=== PATIENT | female | born 1980 | race American Indian/Alaskan Native ===

== ENCOUNTER 2019-03-05 20:46 | Emergency (ER) | payer BC, OTHER ==
[2019-03-05 21:10] VITALS: BP 112/65
--- NOTE | 2019-03-05 21:29 | Event Note ---
ED Screening Note ED Screening Note: This initial assessment/diagnostic orders/clinical plan/treatment(s) is/are subject to change based on patients health status, clinical progression and re- assessment by fellow clinical providers in the ED. Further treatment and workup at subsequent clinical providers discretion. Patient/guardian urged not to elope from the ED as their condition may be serious if not clinically assessed and managed. Initial orders include: 39 yo BF states that she has R lower abdominal pain that radiates to her back x 2 days. She states that she has taken Motrin 800mg with no relief.
[2019-03-05 22:15] LABS: Bilirubin,Urine NEG (Negative); Blood,Urine NEG (Negative); Color,Urine Yellow (Yellow); Mucus,Urine 3+ /HPF; Protein,Urine <15 mg/dL mg/dL (Negative); Urobilinogen,Urine < 2.0 mg/dL (<2.0)
[2019-03-05 22:20] LABS: HCG Qualitative,Urine Negative (Negative)
[2019-03-05 22:43] LABS: Basophils % (Auto) 0.6 % (0.0-1.8); Eosinophils # (Auto) 0.1 K/mm3 (0.0-0.4); Hematocrit 35.2 % (30.3-42.9); Hemoglobin 11.5 gm/dl (10.1-14.3); Lymphocytes # (Auto) 2.2 K/mm3 (1.2-5.4); Lymphocytes % (Auto) 46.4 % (13.4-35.0); Mean Corpuscular HGB Conc 33 % (30-34); Mean Corpuscular Volume 91 fl (79-97); Monocytes # (Auto) 0.4 K/mm3 (0.0-0.8); Monocytes % (Auto) 8.6 % (0.0-7.3); Platelet Count 231 K/mm3 (140-440); Red Blood Count 3.89 M/mm3 (3.65-5.03); Red Cell Distribution Width 14.5 % (13.2-15.2)
[2019-03-05] MEDS ORDERED: MORPHINE 4 MG/1 ML INJ IV ONE (23:14)
[2019-03-05] MEDS ORDERED: ONDANSETRON 4 MG/2 ML INJ IV ONE (23:14)
[2019-03-05] MEDS ORDERED: SODIUM CHLORIDE 0.9% 1000 ML 1,000 ML IV ONE (23:15)
[2019-03-05 23:47] LABS: Alanine Aminotransferase 14 units/L (7-56); Albumin 3.7 g/dL (3.9-5); BUN/Creatinine Ratio 13; Blood Urea Nitrogen 8 mg/dL (7-17); Calcium 8.5 mg/dL (8.4-10.2); Hemolysis Index 0
[2019-03-06] MEDS ORDERED: cefTRIAXone/NS 1 GM/50 ML 1 GM/50 ML BAG IV ONE (00:21)
--- NOTE | 2019-03-06 01:09 | Cat Scan Report ---
CT ABDOMEN AND PELVIS WITH CONTRAST INDICATION / CLINICAL INFORMATION: R lower abdominal pain. TECHNIQUE: Axial CT images were obtained through the abdomen and pelvis after 100 mL Omnipaque [address] scans at this location are performed using CT dose reduction for ALARA by means of automated exposure control. COMPARISON: None available. FINDINGS: LOWER CHEST: No significant abnormality. LIVER: Probable small flash fill cavernous hemangioma in the dome of the right lobe. No significant a bnormality. GALLBLADDER: No significant abnormality. BILE DUCTS: No significant abnormality. PANCREAS: No significant abnormality. SPLEEN: No significant abnormality. ADRENALS: No significant abnormality. RIGHT KIDNEY and URETER: No significant abnormality. LEFT KIDNEY and URETER: No significant abnormality. STOMACH and SMALL BOWEL: No significant abnormality. COLON: No significant abnormality. APPENDIX: No significant abnormality. PERITONEUM: Trace free fluid in the pelvis. No free air. No fluid collection. LYMPH NODES: No significant adenopathy. AORTA and ARTERIES: No significant abnormality. IVC and VEINS: No significant abnormality. URINARY BLADDER: No significant abnormality. REPRODUCTIVE ORGANS: Uterus shows no acute abnormality. Left adnexal cysts measuring up to 3.1 cm in size. ADDITIONAL FINDINGS: None. SKELETAL SYSTEM: No significant abnormality. IMPRESSION: 1. No inflammatory process or bowel obstruction. 2. Left adnexal cysts measuring up to 3.1 cm with trace free fluid in the pelvis. Signer Name: Shyla Rodriguez MD Signed: 03/06/2019 1:05 AM Workstation Name: [id number]
--- NOTE | 2019-03-06 01:35 | Emergency Department Report ---
ED Abdominal Pain HPI - General Chief Complaint: Urogenital-Female Stated Complaint: LOWER RIGHT SIDE & LOWER RIGHT BACK PAIN Source: patient Mode of arrival: Ambulatory Limitations: No Limitations - History of Present Illness Initial Comments: Patient is a 39-year-old -[place] female with no past medical history presents to the ED with complaint of acute onset persistent right lower quadrant pain with nausea and vomiting for the last 2 days. Patient states that the pain in the right lower quadrant radiates to the right flank and right low back with urinary frequency. Patient denies fever, chills, diarrhea, dizziness, chest pain, shortness of breath, dysuria, vaginal bleeding, vaginal discharge, follow traumatic injury. MD Complaint: abdominal pain -: Sudden, days(s) (2) Location: RLQ, R flank Radiation: RLQ, R flank Migration to: no migration Severity scale (0 -10): 7 Quality: aching, sharp Consistency: constant Improves With: nothing Worsens With: movement Associated Symptoms: denies other symptoms, nausea, vomiting. denies: diarrhea, fever, chills, constipation, dysuria, melena, hematuria, anorexia, syncope - Related Data LMP Date: 03/03/19 Previous Rx's Medication Instructions Recorded Last Taken Type Fluconazole [Diflucan TAB] 150 mg PO ONCE #1 tablet 03/06/19 Unknown Rx Ketorolac [Toradol] 10 mg PO Q8H PRN #20 tablet 03/06/19 Unknown Rx Ondansetron [Zofran Odt] 4 mg PO Q6HR PRN #15 tab.rapdis 03/06/19 Unknown Rx cephALEXin [Keflex] 500 mg PO Q8HR #30 cap 03/06/19 Unknown Rx Allergies Allergy/AdvReac Type Severity Reaction Status Date / Time No Known Allergies Allergy Unverified 03/05/19 21:06 ED Review of Systems ROS: Stated complaint: LOWER RIGHT SIDE & LOWER RIGHT BACK PAIN Other details as noted in HPI Constitutional: denies: chills, fever Eyes: denies: eye pain, eye discharge, vision change ENT: denies: ear pain, throat pain Respiratory: denies: cough, shortness of breath, wheezing Cardiovascular: denies: chest pain, palpitations Endocrine: no symptoms reported Gastrointestinal: abdominal pain, nausea. denies: diarrhea Genitourinary: denies: urgency, dysuria, discharge Musculoskeletal: denies: back pain, joint swelling, arthralgia Skin: denies: rash, lesions Neurological: denies: headache, weakness, paresthesias Psychiatric: denies: anxiety, depression Hematological/Lymphatic: denies: easy bleeding, easy bruising ED Past Medical Hx - Past Medical History Previous Medical History?: No - Surgical History Past Surgical History?: No - Social History Smoking Status: Never Smoker Substance Use Type: Alcohol - Medications Home Medications: Home Medications Medication Instructions Recorded Confirmed Last Taken Type Fluconazole [Diflucan TAB] 150 mg PO ONCE #1 tablet 03/06/19 Unknown Rx Ketorolac [Toradol] 10 mg PO Q8H PRN #20 tablet 03/06/19 Unknown Rx Ondansetron [Zofran Odt] 4 mg PO Q6HR PRN #15 tab.rapdis 03/06/19 Unknown Rx cephALEXin [Keflex] 500 mg PO Q8HR #30 cap 03/06/19 Unknown Rx ED Physical Exam - General Limitations: No Limitations General appearance: alert, in no apparent distress - Head Head exam: Present: atraumatic, normocephalic, normal inspection - Eye Eye exam: Present: normal appearance, PERRL, EOMI Pupils: Present: normal accommodation - ENT ENT exam: Present: normal exam, normal orophraynx, mucous membranes moist, TM's normal bilaterally, normal external ear exam - Neck Neck exam: Present: normal inspection, full ROM - Respiratory Respiratory exam: Present: normal lung sounds bilaterally. Absent: respiratory distress, wheezes, rales, stridor, chest wall tenderness, decreased breath sounds, prolonged expiratory - Cardiovascular Cardiovascular Exam: Present: regular rate, normal rhythm, normal heart sounds. Absent: systolic murmur, diastolic murmur, rubs, gallop - GI/Abdominal GI/Abdominal exam: Present: soft, tenderness (moderately tender right lower quadrant area, no guarding or rebound), normal bowel sounds. Absent: guarding, rebound, hyperactive bowel sounds, hypoactive bowel sounds, mass - Extremities Exam Extremities exam: Present: normal inspection, full ROM, normal capillary refill - Back Exam Back exam: Present: normal inspection, full ROM. Absent: tenderness, CVA tenderness (R), muscle spasm, paraspinal tenderness, vertebral tenderness - Neurological Exam Neurological exam: Present: alert, oriented X3, CN II-XII intact, normal gait, reflexes normal - Psychiatric Psychiatric exam: Present: normal affect, normal mood - Skin Skin exam: Present: warm, dry, intact, normal color. Absent: rash ED Course Vital Signs 03/05/19 21:06 Temperature 98.3 F Pulse Rate 75 Respiratory 18 Rate Blood Pressure 112/65 O2 Sat by Pulse 100 Oximetry - Reevaluation(s) Reevaluation #1: 03/06/19 01:43 This is a 39-year-old -[place] female who presented to the ED with right lower quadrant pain with nausea for the last 2 days. In the ED, patient is alert and oriented 3 and is not in distress. Lab test results were reviewed and are nonactionable except urinalyses that shows significant urinary tract infection. Abdomen pelvis CT scan with contrast shows no acute inflammatory process or pathology of the pelvis and abdomen. Appendix is normal. Patient was treated for pain and for nausea and vomiting. On reevaluation, patient's alert and oriented 3 and is not in distress with pain well controlled. Patient was discharged home on antibiotics and pain medication and advised to follow-up with her primary care physician in 5-7 days for reevaluation or return to the ED immediately if symptoms get worse. 03/06/19 01:44 ED Medical Decision Making - Lab Data Result diagrams: 03/05/19 21:51 03/05/19 23:02 - Radiology Data Radiology results: report reviewed, [place] [id number] Cat Scan Report Signed Patient: MARY FLOWERS MR# : [id number] : 1980 Acct:[id number] Age/Sex: 39 / F ADM Date: 03/05/19 Loc: ED Attending Dr: Ordering Physician: ALLY SALAZAR PA-C Date of Service: 03/05/19 Procedure(s): CT abdomen pelvis w con Accession Number(s): [id number] cc: ALLY SALAZAR PA-C CT ABDOMEN AND PELVIS WITH CONTRAST INDICATION / CLINICAL INFORMATION: R lower abdominal pain. TECHNIQUE: Axial CT images were obtained through the abdomen and pelvis after 100 mL Omnipaque [address] scans at this location are performed using CT dose reduction for ALARA by means of automated exposure control. COMPARISON: None available. FINDINGS: LOWER CHEST: No significant abnormality. LIVER: Probable small flash fill cavernous hemangioma in the dome of the right lobe. No significant abnormality. GALLBLADDER: No significant abnormality. BILE DUCTS: No significant abnormality. PANCREAS: No significant abnormality. SPLEEN: No significant abnormality. ADRENALS: No significant abnormality. RIGHT KIDNEY and URETER: No significant abnormality. LEFT KIDNEY and URETER: No significant abnormality. STOMACH and SMALL BOWEL: No significant abnormality. COLON: No significant abnormality. APPENDIX: No significant abnormality. PERITONEUM: Trace free fluid in the pelvis. No free air. No fluid collection. LYMPH NODES: No significant adenopathy. AORTA and ARTERIES: No significant abnormality. IVC and VEINS: No significant abnormality. URINARY BLADDER: No significant abnormality. REPRODUCTIVE ORGANS: Uterus shows no acute abnormality. Left adnexal cysts measuring up to 3.1 cm in size. ADDITIONAL FINDINGS: None. SKELETAL SYSTEM: No significant abnormality. IMPRESSION: 1. No inflammatory process or bowel obstruction. 2. Left adnexal cysts measuring up to 3.1 cm with trace free fluid in the pelvis. Signer Name: Shyla Rodriguez MD Signed: 03/06/2019 1:05 AM Workstation Name: [id number] Transcribed By: DT Dictated By: Tenzin Rodriguez MD Electronically Authenticated By: Tenzin Rodriguez MD Signed Date/Time: 03/06/19 0105 - Medical Decision Making This is a 39-year-old -[place] female who presented to the ED with right lower quadrant pain with nausea for the last 2 days. In the ED, patient is alert and oriented 3 and is not in distress. Lab test results were reviewed and are nonactionable except urinalyses that shows significant urinary tract infection. Abdomen pelvis CT scan with contrast shows no acute inflammatory process or pathology of the pelvis and abdomen. Appendix is normal. Patient was treated for pain and for nausea and vomiting. On reevaluation, patient's alert and oriented 3 and is not in distress with pain well controlled. Patient was discharged home on antibiotics and pain medication and advised to follow-up with her primary care physician in 5-7 days for reevaluation or return to the ED immediately if symptoms get worse. - Differential Diagnosis Appendicitis; colitis; UTI; Ovarian cyst; Kidney stones Critical care attestation.: If time is entered above; I have spent that time in minutes in the direct care of this critically ill patient, excluding procedure time. ED Disposition Clinical Impression: Acute urinary tract infection Abdominal pain Qualifiers: Abdominal location: right lower quadrant Qualified Code(s): R10.31 - Right lower quadrant pain Disposition: TO HOME OR SELFCARE Is pt being admited?: No Does the pt Need Aspirin: No Condition: Stable Instructions: Abdominal Pain (ED), Urinary Tract Infection in Women (ED) Additional Instructions: Take medication with food, drink plenty of fluids and follow-up with your primary care physician in 5-7 days for reevaluation. Return to the ED immed iately if symptoms get worse. Prescriptions: Fluconazole [Diflucan TAB] 150 mg PO ONCE #1 tablet cephALEXin [Keflex] 500 mg PO Q8HR #30 cap Ketorolac [Toradol] 10 mg PO Q8H PRN #20 tablet PRN Reason: Pain Ondansetron [Zofran Odt] 4 mg PO Q6HR PRN #15 tab.rapdis PRN Reason: Nausea Referrals: PRIMARY CARE, [Primary Care Provider] - 3-5 Days Time of Disposition: 01:33 Print Language: URUGUAYAN
[2019-03-06] MEDS ORDERED: ONDANSETRON 4 MG ODT TAB PO ONE (02:21)
[2019-03-06] MEDS ORDERED: ONDANSETRON 4 MG ODT TAB ONE (02:22)
== END 2019-03-06 02:27 | disposition home or self-care (01) ==
LOC: ED 20:46
DX: N39.0 Urinary tract infection, site not specified (principal)
CPT/HCPCS: 36415; 74177; 80053; 81001; 81025; 82140; 83690; 85025; 87086; J0696; J2270; J2405; J7030; Q9967; 87076; 87186; 96361; 96365; 96375; Q0162

== ENCOUNTER 2019-08-31 20:02 | Emergency (ER) | payer BC ==
[2019-08-31 21:48] VITALS: BP 147/79
--- NOTE | 2019-08-31 22:33 | Emergency Department Report ---
Chief Complaint: Sore Throat Stated Complaint: FEEL THROAT CLOSING/SOB Time Seen by Provider: 08/31/19 22:16 - HPI History of Present Illness: 39yo pt states that she has chest irritation, dry cough, sore and itchy throat along with nausea x 3 days. - ROS Review of Systems: All systems reviewed and negative. - Exam Vital Signs: Reviewed Vital Signs 08/31/19 08/31/19 21:45 21:48 Temperature 98.8 F Pulse Rate 70 Respiratory 18 Rate Blood Pressure 147/79 O2 Sat by Pulse 99 Oximetry Physical Exam: General- WNL HEENNT-WNL Heart-WNL Lungs-WNL Abdomen-WNL MS-WNL Skin-WNL Neuro-WNL Psych-WNL MSE screening note: Focused history and physical exam performed. Due to findings the following was ordered: Pt was explained that she is being MSE screened out. Pt was instructed to continue daily activities, Claritin, Flonase and NICOLE as directed; see PCP. She was informed to see ER if severe symptoms arise or current symptoms become worse. Patient discussed with doctor:: SEJAL ALTAMIRANO ED Medical Decision Making - Medical Decision Making Pt was explained that she is being MSE screened out. Pt was instructed to continue daily activities, Claritin, Flonase and NICOLE as directed; see PCP. She was informed to see ER if severe symptoms arise or current symptoms become worse. ED Disposition for MSE Clinical Impression: Allergic rhinitis, Bronchitis Disposition: Z- MED SCREENING EXAM-LEFT Is pt being admited?: No Does the pt Need Aspirin: No Condition: Stable Instructions: Chronic Bronchitis (ED) Prescriptions: Loratadine [Claritin] 10 mg PO ONCE 30 Days #30 tablet Fluticasone [Flonase] 1 spray NS QDAY 30 Days #1 bottle Albuterol INH(or & Nicu Only) [ProAir HFA Inhaler] 2 puff IH QID PRN #8.5 gram PRN Reason: Shortness Of Breath Time of Disposition: 22:39 Print Language: SERBIAN
== END 2019-08-31 22:45 | disposition left against medical advice (07) ==
LOC: ED 20:02
DX: J40 Bronchitis, not specified as acute or chronic (principal); J30.9 Allergic rhinitis, unspecified
CPT/HCPCS: 99281

== ENCOUNTER 2019-09-02 04:34 | Emergency (ER) | payer BC ==
--- NOTE | 2019-09-02 05:34 | XRay Report ---
CHEST 1 VIEW INDICATION / CLINICAL INFORMATION: vance. COMPARISON: None available. FINDINGS: SUPPORT DEVICES: None. HEART / MEDIASTINUM: No significant abnormality. LUNGS / PLEURA: No significant pulmonary or pleural abnormality. No pneumothorax. ADDITIONAL FINDINGS: No significant additional findings. IMPRESSION: No acute pulmonary or pleural abnormality Signer Name: Luis Bean MD FACR Signed: 09/02/2019 5:29 AM Workstation Name: [email or web address]
[2019-09-02 05:35] LABS: Hematocrit 35.4 % (30.3-42.9); Hemoglobin 11.5 gm/dl (10.1-14.3); Mean Corpuscular HGB Conc 33 % (30-34); Mean Corpuscular Volume 89 fl (79-97); Platelet Count 226 K/mm3 (140-440); Red Blood Count 3.95 M/mm3 (3.65-5.03); Red Cell Distribution Width 14.2 % (13.2-15.2)
[2019-09-02 05:48] LABS: BUN/Creatinine Ratio 10; Blood Urea Nitrogen 8 mg/dL (7-17); Calcium 8.6 mg/dL (8.4-10.2); Hemolysis Index 8
--- NOTE | 2019-09-02 06:13 | Emergency Department Report ---
ED Shortness of Breath HPI - General Chief Complaint: Dyspnea/Respdistress Stated Complaint: MARK Time Seen by Provider: 09/02/19 06:08 Source: patient, EMS Mode of arrival: Stretcher Limitations: No Limitations - History of Present Illness Initial Comments: This is a 39-year-old female without significant past medical history who presents with cough sore throat shortness of breath body fatigue for the past several days. She has generalized malaise. She was told on recent ED visit that she was diagnosed with asthma. No previous history of asthma. She has been using inhaler prescribed to her. She has continued to work in the middle of our coronavirus DORENE 19 pandemic. She works with her department of [employer]. She obtained COVID 19 testing on her own discretion at a wellness lab. She is currently waiting for those results. Patient noticed that she decreased sense of taste and smell MD Complaint: shortness of breath, cough -: Gradual, days(s) (5 days Saturday) Severity: mild Consistency: constant Improves With: bronchodilators Worsens With: nothing - Related Data Previous Rx's Medication Instructions Recorded Last Taken Type Fluconazole [Diflucan TAB] 150 mg PO ONCE #1 tablet 03/06/19 Unknown Rx Ketorolac [Toradol] 10 mg PO Q8H PRN #20 tablet 03/06/19 Unknown Rx Ondansetron [Zofran Odt] 4 mg PO Q6HR PRN #15 tab.rapdis 03/06/19 Unknown Rx cephALEXin [Keflex] 500 mg PO Q8HR #30 cap 03/06/19 Unknown Rx Albuterol INH(or & Nicu Only) 2 puff IH QID PRN #8.5 gram 08/31/19 Unknown Rx [ProAir HFA Inhaler] Fluticasone [Flonase] 1 spray NS QDAY 30 Days #1 bottle 08/31/19 Unknown Rx Loratadine [Claritin] 10 mg PO ONCE 30 Days #30 tablet 08/31/19 Unknown Rx Allergies Allergy/AdvReac Type Severity Reaction Status Date / Time No Known Allergies Allergy Unverified 03/05/19 21:06 ED Review of Systems ROS: Stated complaint: MARK Other details as noted in HPI Comment: All other systems reviewed and negative Constitutional: malaise. denies: fever Respiratory: cough, shortness of breath Gastrointestinal: denies: abdominal pain, nausea, vomiting ED Past Medical Hx - Past Medical History Previous Medical History?: Yes Hx Asthma: Yes (Pt says diagnosed on 09/01/2019) - Surgical History Past Surgical History?: No Additional Surgical History: Tubal Ligation - Social History Smoking Status: Never Smoker Substance Use Type: None - Medications Home Medications: Home Medications Medication Instructions Recorded Confirmed Last Taken Type Fluconazole [Diflucan TAB] 150 mg PO ONCE #1 tablet 03/06/19 Unknown Rx Ketorolac [Toradol] 10 mg PO Q8H PRN #20 tablet 03/06/19 Unknown Rx Ondansetron [Zofran Odt] 4 mg PO Q6HR PRN #15 tab.rapdis 03/06/19 Unknown Rx cephALEXin [Keflex] 500 mg PO Q8HR #30 cap 03/06/19 Unknown Rx Albuterol INH(or & Nicu Only) 2 puff IH QID PRN #8.5 gram 08/31/19 Unknown Rx [ProAir HFA Inhaler] Fluticasone [Flonase] 1 spray NS QDAY 30 Days #1 bottle 08/31/19 Unknown Rx Loratadine [Claritin] 10 mg PO ONCE 30 Days #30 tablet 08/31/19 Unknown Rx ED Physical Exam - General Limitations: No Limitations General appearance: alert, in no apparent distress, other (Speaking full word sentences no acute distress) - Head Head exam: Present: atraumatic, normocephalic - Eye Eye exam: Present: normal appearance - ENT ENT exam: Present: mucous membranes moist - Neck Neck exam: Present: normal inspection, full ROM - Respiratory Respiratory exam: Present: normal lung sounds bilaterally. Absent: respiratory distress, wheezes, rales, rhonchi - Cardiovascular Cardiovascular Exam: Present: regular rate, normal rhythm, normal heart sounds. Absent: systolic murmur, diastolic murmur, rubs, gallop - GI/Abdominal GI/Abdominal exam: Present: soft, normal bowel sounds. Absent: distended, tenderness, guarding, rebound - Extremities Exam Extremities exam: Present: normal inspection - Neurological Exam Neurological exam: Present: alert, oriented X3 - Psychiatric Psychiatric exam: Present: normal affect, normal mood - Skin Skin exam: Present: warm, dry, intact, normal color. Absent: rash ED Medical Decision Making - Lab Data Result diagrams: 09/02/19 05:24 09/02/19 05:24 Laboratory Results - last 24 hr 09/02/19 09/02/19 09/02/19 05:24 05:24 05:24 WBC 5.2 RBC 3.95 Hgb 11.5 Hct 35.4 MCV 89 MCH 29 MCHC 33 RDW 14.2 Plt Count 226 Sodium 138 Potassium 4.0 Chloride 103.4 Carbon Dioxide 24 Anion Gap 15 BUN 8 Creatinine 0.8 Estimated GFR > 60 BUN/Creatinine Ratio 10 Glucose 95 Lactic Acid 1.40 Calcium 8.6 - Radiology Data Radiology results: report reviewed Chest radiograph no acute findings according to radiology impression - Medical Decision Making Clinical impression: Coronavirus Covidc 19 infection with history of cough loss of smell and taste, I strongly suspect COVI19 infection. Patient is well aware that she must self isolate for 14 days. Patient appears well. No pneumonia on chest x-ray. Normal vital signs. CBC chemistry within normal limits lactic acid within normal limits. Critical care attestation.: If time is entered above; I have spent that time in minutes in the direct care of this critically ill patient, excluding procedure time. ED Disposition Clinical Impression: Coronavirus infection Disposition: DC-01 TO HOME OR SELFCARE Is pt being admited?: No Does the pt Need Aspirin: No Condition: Stable Instructions: COVID-19 Additional Instructions: Ravinderiu must stay at home for the next 14 days. Please avoid all unnecessary human contact. Please stay away from public places. Forms: Work/School Release Form(ED)
[2019-09-02 06:26] VITALS: BP 130/86
== END 2019-09-02 06:26 | disposition home or self-care (01) ==
LOC: ED 04:34
DX: B34.2 Coronavirus infection, unspecified (principal); J45.909 Unspecified asthma, uncomplicated; Z98.51 Tubal ligation status
CPT/HCPCS: 36415; 71045; 80048; 82140; 85027; 99284

== ENCOUNTER 2019-09-02 18:16 | Emergency (ER) | payer BC ==
[2019-09-02 18:50] VITALS: BP 130/84
--- NOTE | 2019-09-02 19:34 | Emergency Department Report ---
ED General Adult HPI - General Chief complaint: Medical Clearance Stated complaint: BODY PAIN Time Seen by Provider: 09/02/19 19:04 Source: patient, EMS Mode of arrival: Stretcher Limitations: No Limitations - History of Present Illness Initial comments: 39-year-old female with no significant past medical history presents to the second time today to the ER due to concerns about coronavirus. Patient has been seen here on both August 30 and earlier today. She complains of cough, chest congestion, sore throat, and intermittent shortness of breath. She was seen by midlevel in triage and diagnosed with bronchitis and allergic rhinitis and prescribed an inhaler as well as Claritin and Flonase. She returned earlier today complaining of continued symptoms including body fatigue, generalized malaise and more recently decreased sense of taste and smell. Patient denies having a fever. She denies recent travel or known coronavirus exposure. Filiberto mcfarlane she received ED work-up including labs and a chest x-ray which was negative for pneumonia. Patient states since being discharged earlier today she had 2 separate episodes of her body spasming, generalized burning sensation, and shortness of breath. Patient admits that she might have been hyperventilating with episodes however, with second episode of shortness of breath started after body spasms. She states that she lives alone and is afraid that something may happen to her and no one is available to check on her. Patient complains of decreased appetite without vomiting. Patient does not complain of shortness of breath or muscle spasms at this time. Patient has taken an outpatient coronavirus test and results are expected tomorrow. Severity scale (0 -10): 0 - Related Data Previous Rx's Medication Instructions Recorded Last Taken Type Fluconazole [Diflucan TAB] 150 mg PO ONCE #1 tablet 03/06/19 Unknown Rx Ketorolac [Toradol] 10 mg PO Q8H PRN #20 tablet 03/06/19 Unknown Rx Ondansetron [Zofran Odt] 4 mg PO Q6HR PRN #15 tab.rapdis 03/06/19 Unknown Rx cephALEXin [Keflex] 500 mg PO Q8HR #30 cap 03/06/19 Unknown Rx Albuterol INH(or & Nicu Only) 2 puff IH QID PRN #8.5 gram 08/31/19 Unknown Rx [ProAir HFA Inhaler] Fluticasone [Flonase] 1 spray NS QDAY 30 Days #1 bottle 08/31/19 Unknown Rx Loratadine [Claritin] 10 mg PO ONCE 30 Days #30 tablet 08/31/19 Unknown Rx Allergies Allergy/AdvReac Type Severity Reaction Status Date / Time No Known Allergies Allergy Unverified 03/05/19 21:06 ED Review of Systems ROS: Stated complaint: BODY PAIN Other details as noted in HPI Comment: All other systems reviewed and negative ED Past Medical Hx - Past Medical History Hx Asthma: Yes (Pt says diagnosed on 09/01/2019) - Surgical History Additional Surgical History: Tubal Ligation - Social History Smoking Status: Unknown if ever smoked - Medications Home Medications: Home Medications Medication Instructions Recorded Confirmed Last Taken Type Fluconazole [Diflucan TAB] 150 mg PO ONCE #1 tablet 03/06/19 Unknown Rx Ketorolac [Toradol] 10 mg PO Q8H PRN #20 tablet 03/06/19 Unknown Rx Ondansetron [Zofran Odt] 4 mg PO Q6HR PRN #15 tab.rapdis 03/06/19 Unknown Rx cephALEXin [Keflex] 500 mg PO Q8HR #30 cap 03/06/19 Unknown Rx Albuterol INH(or & Nicu Only) 2 puff IH QID PRN #8.5 gram 08/31/19 Unknown Rx [ProAir HFA Inhaler] Fluticasone [Flonase] 1 spray NS QDAY 30 Days #1 bottle 08/31/19 Unknown Rx Loratadine [Claritin] 10 mg PO ONCE 30 Days #30 tablet 08/31/19 Unknown Rx ED Physical Exam - General Limitations: No Limitations - Other Other exam information: General: No acute distress Head: Atraumatic Eyes: normal appearance ENT: Moist mucous membranes Neck: Normal appearance, no midline tenderness Chest: Clear to auscultation bilaterally CV: Regular rate and rhythm Abdomen: Soft, normal bowel sounds, nontender, nondistended, no rebound or guarding Back: Normal inspection Extremity: Normal inspection, full range of motion Neuro: Alert O x 3, no facial asymmetry, speech clear, no gross motor sensory deficit Psych: Appropriate behavior Skin: No rash ED Course Vital Signs 09/02/19 18:49 Pulse Rate 74 Respiratory 16 Rate Blood Pressure 130/84 [Left] O2 Sat by Pulse 99 Oximetry ED Medical Decision Making - Medical Decision Making Vital signs rechecked upon this visit and patient is still afebrile without any signs of tachypnea, hypoxia, or tachycardia. Lungs remain clear to auscultation. Patient does not currently have any muscle spasms. Labs from previous visit reviewed. Patient's coronavirus test showed result tomorrow. Patient does not meet criteria for inpatient treatment and does not have signs of pneumonia on her x-ray performed today. Patient reassured that her vitals are normal. Patient informed perhaps she is having carpopedal spasms related to anxiety and hyperventilation. I informed her that viruses such as coronavirus may cause generalized myalgias and body aches associated with fever but do not cause involuntary spasms. Patient informed of how to handle hyperventilation/anxiety episodes and if symptoms do not improved she may call EMS so they may recheck her vital signs and reassess her at the scene or she may return to the ER. - Differential Diagnosis Anxiety, pneumonia, hypoxia, carpopedal spasms, myalgias Critical Care Time: No Critical care attestation.: If time is entered above; I have spent that time in minutes in the direct care of this critically ill patient, excluding procedure time. ED Disposition Clinical Impression: Viral infection, Muscle spasm Disposition: DC-01 TO HOME OR SELFCARE Is pt being admited?: No Does the pt Need Aspirin: No Condition: Stable Instructions: Muscle Spasm (ED), COVID-19, Viral Syndrome (ED) Additional Instructions: Continue your current medications to address your symptoms. Follow-up with your doctor or doctor/clinic provided. Return if symptoms worsen as indicated by your discharge instructions. Follow-up on your coronavirus test tomorrow and continue to self isolate as instructed. Referrals: PRIMARY CARE, [Primary Care Provider] - 3-5 Days Time of Disposition: 19:44
== END 2019-09-02 20:50 | disposition home or self-care (01) ==
LOC: ED 18:16
DX: B34.9 Viral infection, unspecified (principal); H02.59 Other disorders affecting eyelid function
CPT/HCPCS: 99283

== ENCOUNTER 2020-11-17 22:29 | Emergency (ER) | payer SELFPAY ==
[2020-11-17 23:06] VITALS: BP 133/56
--- NOTE | 2020-11-17 23:16 | Emergency Department Report ---
ED Neck Pain/Injury HPI - General Chief Complaint: Neck Pain/Injury Stated Complaint: NECK PAIN Mode of arrival: Ambulatory Limitations: No Limitations - History of Present Illness Initial Comments: Patient is a 40-year-old -Italian female with a history of asthma presents to the ED with complaint of acute onset persistent nontraumatic left lateral neck pain with mild headache for the last 8 hours. Patient states that she was resting at home when she turned her neck on the left and started having acute onset pain. Patient states that the pain has worsened in the last 6 hours such that she is unable to perform any active range of motion in the neck. Patient states that despite taking ibuprofen tablets at home for pain the pain has been persistent. Patient denies dizziness, syncope, chest pain, shortness of breath, nausea and vomiting, change in vision, traumatic injury, heavy lifting, speech changes, back pain, fever and chills. MD Complaint: neck pain (left lateral ) -: Sudden, hour(s) (8) Place: home Radiation: left lateral, head Severity: severe Severity scale (0 -10): 7 Quality: sharp, aching Consistency: constant Improves With: none Worsens With: movement of neck Context: unknown (spontaneous) Associated Symptoms: none, headache. denies: fever, numbness, tingling, wea kness, vertigo, difficulty walking, swollen glands, difficulty swallowing, nausea, vomiting Treatments Prior to Arrival: Ibuprofen - Related Data Previous Rx's Medication Instructions Recorded Last Taken Type Fluconazole (Nf) [Diflucan TAB] 150 mg PO ONCE #1 tablet 03/06/19 Unknown Rx Ketorolac [Toradol] 10 mg PO Q8H PRN #20 tablet 03/06/19 Unknown Rx Ondansetron [Zofran Odt] 4 mg PO Q6HR PRN #15 tab.rapdis 03/06/19 Unknown Rx cephALEXin [Keflex] 500 mg PO Q8HR #30 cap 03/06/19 Unknown Rx Albuterol Mdi (or & Nicu Only) 2 puff IH QID PRN #8.5 gram 08/31/19 Unknown Rx [ProAir HFA Inhaler] Fluticasone [Flonase] 1 spray NS QDAY 30 Days #1 bottle 08/31/19 Unknown Rx Loratadine [Claritin] 10 mg PO ONCE 30 Days #30 tablet 08/31/19 Unknown Rx Baclofen 20 mg PO Q12H PRN #20 tablet 11/17/20 Unknown Rx Ibuprofen [Motrin] 800 mg PO Q8HR PRN #30 tablet 11/17/20 Unknown Rx predniSONE [Deltasone] 40 mg PO QDAY #10 tab 11/17/20 Unknown Rx Allergies Allergy/AdvReac Type Severity Reaction Status Date / Time No Known Allergies Allergy Unverified 03/05/19 21:06 ED Review of Systems ROS: Stated complaint: NECK PAIN Other details as noted in HPI Constitutional: denies: chills, fever Eyes: denies: eye pain, eye discharge, vision change ENT: denies: ear pain, throat pain Respiratory: denies: cough, shortness of breath, wheezing Cardiovascular: denies: chest pain, palpitations Endocrine: no symptoms reported Gastrointestinal: denies: abdominal pain, nausea, diarrhea Genitourinary: denies: urgency, dysuria, discharge Musculoskeletal: arthralgia (Left lateral neck pain). denies: back pain, joint swelling Skin: denies: rash, lesions Neurological: headache. denies: weakness, paresthesias Psychiatric: denies: anxiety, depression Hematological/Lymphatic: denies: easy bleeding, easy bruising ED Past Medical Hx - Past Medical History Previous Medical History?: No Hx Asthma: Yes - Surgical History Past Surgical History?: No Additional Surgical History: Tubal Ligation - Social History Smoking Status: Never Smoker - Medications Home Medications: Home Medications Medication Instructions Recorded Confirmed Last Taken Type Fluconazole (Nf) [Diflucan TAB] 150 mg PO ONCE #1 tablet 03/06/19 Unknown Rx Ketorolac [Toradol] 10 mg PO Q8H PRN #20 tablet 03/06/19 Unknown Rx Ondansetron [Zofran Odt] 4 mg PO Q6HR PRN #15 tab.rapdis 03/06/19 Unknown Rx cephALEXin [Keflex] 500 mg PO Q8HR #30 cap 03/06/19 Unknown Rx Albuterol Mdi (or & Nicu Only) 2 puff IH QID PRN #8.5 gram 08/31/19 Unknown Rx [ProAir HFA Inhaler] Fluticasone [Flonase] 1 spray NS QDAY 30 Days #1 bottle 08/31/19 Unknown Rx Loratadine [Claritin] 10 mg PO ONCE 30 Days #30 tablet 08/31/19 Unknown Rx Baclofen 20 mg PO Q12H PRN #20 tablet 11/17/20 Unknown Rx Ibuprofen [Motrin] 800 mg PO Q8HR PRN #30 tablet 11/17/20 Unknown Rx predniSONE [Deltasone] 40 mg PO QDAY #10 tab 11/17/20 Unknown Rx ED Physical Exam - General Limitations: No Limitations General appearance: alert, in no apparent distress - Head Head exam: Present: atraumatic, normocephalic, normal inspection - Eye Eye exam: Present: normal appearance, PERRL, EOMI Pupils: Present: normal accommodation - ENT ENT exam: Present: normal exam, normal orophraynx, mucous membranes moist, TM's normal bilaterally, normal external ear exam - Neck Neck exam: Present: normal inspection, tenderness (Palpable left lateral cervical paraspinal musculoskeletal tenderness). Absent: meningismus, full ROM (Limited range of motion due to pain), lymphadenopathy, thyromegaly - Respiratory Respiratory exam: Present: normal lung sounds bilaterally. Absent: respiratory distress, wheezes, rales, rhonchi, chest wall tenderness, accessory muscle use, decreased breath sounds, prolonged expiratory - Cardiovascular Cardiovascular Exam: Present: regular rate, normal rhythm, normal heart sounds. Absent: systolic murmur, diastolic murmur, rubs, gallop - GI/Abdominal GI/Abdominal exam: Present: soft, normal bowel sounds. Absent: tenderness, guarding, rebound, hyperactive bowel sounds, hypoactive bowel sounds, mass - Extremities Exam Extremities exam: Present: normal inspection, full ROM, normal capillary refill. Absent: tenderness - Back Exam Back exam: Present: normal inspection, full ROM. Absent: tenderness, CVA tenderness (R), CVA tenderness (L), muscle spasm, paraspinal tenderness, vertebral tenderness - Neurological Exam Neurological exam: Present: alert, oriented X3, CN II-XII intact, normal gait, reflexes normal - Psychiatric Psychiatric exam: Present: normal affect, normal mood - Skin Skin exam: Present: warm, dry, intact, normal color. Absent: rash ED Course Vital Signs 11/17/20 23:05 Temperature 98.6 F Pulse Rate 65 Respiratory 16 Rate Blood Pressure 133/56 O2 Sat by Pulse 99 Oximetry ED Medical Decision Making - Medical Decision Making This is a 40-year-old -Italian female with a history of asthma presents to the ED with complaint of acute onset persistent nontraumatic left lateral neck pain with mild headache for the last 8 hours. Patient states that she was resting at home when she turned her neck on the left and started having acute onset pain. Patient states that the pain has worsened in the last 6 hours such that she is unable to perform any active range of motion in the neck. Patient states that despite taking ibuprofen tablets at home for pain the pain has been persistent. In the ED, patient is alert and oriented x3 and is not in any distress with normal vital signs. Based on the history and physical exam findings, the patient was discharged home on pain medications and muscle relaxants and was advised to follow-up with her primary care physician in 5 to 7 days for reevaluation. Patient was advised return to the ED immediately if symptoms get worse. - Differential Diagnosis Cervical sprain; muscle strain; torticollis Critical care attestation.: If time is entered above; I have spent that time in minutes in the direct care of this critically ill patient, excluding procedure time. ED Disposition Clinical Impression: Cervical paraspinal muscle spasm, Acute torticollis Strain of sternocleidomastoid muscle Qualifiers: Encounter type: initial encounter Qualified Code(s): S16.1XXA - Strain of muscle, fascia and tendon at neck level, initial encounter Disposition: DC- TO HOME OR SELFCARE Is pt being admited?: No Does the pt Need Aspirin: No Condition: Stable Instructions: Muscle Cramps and Spasms, [id number], Cervical Strain and Sprain Rehab-SportsMed, Acute Torticollis, Adult Additional Instructions: Based on the history and physical exam findings, your symptoms are likely due to muscle strain of your neck muscles. Therefore take medications with food, drink plenty of fluids and follow-up with your primary care physician in 5 to 7 days for reevaluation. Return to the ED immediately if symptoms get worse. Prescriptions: Baclofen 20 mg PO Q12H PRN #20 tablet PRN Reason: Muscle Spasm predniSONE [Deltasone] 40 mg PO QDAY #10 tab Ibuprofen [Motrin] 800 mg PO Q8HR PRN #30 tablet PRN Reason: Pain , Severe (7-10) Referrals: [facility] [Provider Group] - 7-10 days Time of Disposition: 23:17 Print Language: SAMMARINESE
== END 2020-11-18 00:45 | disposition home or self-care (01) ==
LOC: ED 22:29
DX: S16.1XXA Strain of muscle, fascia and tendon at neck level, initial encounter (principal); M62.838 Other muscle spasm; M43.6 Torticollis; J45.909 Unspecified asthma, uncomplicated; Z79.899 Other long term (current) drug therapy; Z98.51 Tubal ligation status; X58.XXXA Exposure to other specified factors, initial encounter; Y93.89 Activity, other specified; Y92.008 Other place in unspecified non-institutional (private) residence as the place of occurrence of the external cause; Y99.8 Other external cause status
CPT/HCPCS: 99282